=== PATIENT | male | born 1985 | race Caucasian/White ===

== ENCOUNTER 2021-01-30 14:45 | Outpatient (RCR) | payer BC, SELFPAY ==
--- NOTE | 2021-01-31 09:54 | STOPEVAL ---
SPEECH THERAPY INITIAL EVALUATION: Thank you for referring Willi Velez to [facility].? The patient is scheduled to be seen for therapy? 1x/week for 4 weeks. Please review, sign, date and return this plan of care GAVIOTA. I agree with and certify that the following plan of care is medically necessary. Referring Physician Date Attending Provider: Gurwinder Kilpatrick MD *ST Outpatient Evaluation Therapy Assessment Status Assessment Status Assessment Status Evaluation Outpatient Past Medical History Past Medical History Source of Past Medical History Patient Evaluation Information Problem Diagnosis Hoarseness/Voice Change Onset 1 year ago Cause unknown Diagnostic Tests Other Tests For This Problem seen by ENT Previous Treatments Previous Treatments For This Problem No Prior Level of Function Activity Level (Last 3 Months) Occupation works at [employer]; [employer] Medications Home Meds (Include: OTC, RX, Vitamins, was taking omeprazole per [facility], Dose, Route,and Frequency) first ENT recommendation which Query Text:Home Med Entries Will No did not improve vocal changes Longer Recall From Past Visits. Home ; second opinion ENT Meds Must Be Re-entered With Each Visit. instructed him to stop the omeprazole and prescribed a nasal rinse and flonase. Pt reported that it has only been 2 days but he feels like it is helping Home Setting Home Type House Living Situation With Minor Child,With Spouse Support Available Local Family Support Prior Swallow Level Prior Intake Method Oral Prior Diet Regular (Level 7 Diet) Prior Liquid Consistency Thin (Level 0 Diet) Prior Cognition/Communication Prior Communication Level No Impairment Prior Cognitive Function Able to Function Independently Prior Ability to Handle Finances Independent Pain Assessment Timing of Pain Assessment Timing of Pain Assessment Assessment Self Report Self Report Pain Level 0 Pain Score Pain Score 0: Self Report Voice Evaluation Voice History Voice History Pt reports his difficulty started approximately a year ago with an excessive cough that would not go away for nearly 2 months . He states that since that time he has chronic & constant throat clearing. Pt also c/o post nasal drip and constant swallowing of secretions. He also stated that his voice now
--- NOTE | 2021-02-06 15:50 | PCSTNOTE ---
SPEECH THERAPY DISCHARGE: Attending Provider: Gurwinder Kilpatrick MD Patient:Willi Velez Date of :1985 Patient was seen for the voice evaluation only; pt has since called and canceled further appointments stating that he feels he no longer requires ST. He will be discharged at this time. Patient?s initial visit was on 01/30/2021 15:00 and he had a total of 1 visits. Thank you for referring this patient to [facility]. Please review, sign, date and return this discharge summary GAVIOTA. I have been updated about the patient's current status and I agree with discharge from the above service at this time. Referring Physician Date
== END 2021-02-07 08:35 | disposition home or self-care (01) ==
LOC: ANHST 14:45
PROVIDERS: Visit Provider Otolaryngology
DX: J38.2 Nodules of vocal cords (principal); R49.0 Dysphonia
CPT/HCPCS: 92524

== ENCOUNTER 2021-09-25 12:22 | Outpatient (CLI) | payer BC, SELFPAY ==
--- NOTE | ~2021-09-25 | XR_ITS ---
EXAMINATION: XR chest 2V DATE: 09/25/2021 12:36 INDICATION: COVID-19 pneumonia. Dyspnea. TECHNIQUE: Frontal and lateral views of the chest were obtained. COMPARISON: None. FINDINGS: There are patchy airspace opacities in all lung zones bilaterally with a peripheral predomi nance. No pleural effusion or pneumothorax. The heart size is normal. IMPRESSION: 1. Diffuse lung disease, consistent with COVID-19 pneumonia. Reviewed, dictated and finalized at location A.
== END 2021-09-25 12:23 | disposition home or self-care (01) ==
LOC: ANHIMG 12:25
PROVIDERS: PCP Family Medicine; Visit Provider Nurse Practitioner Family
DX: U07.1 COVID-19 (principal); R91.8 Other nonspecific abnormal finding of lung field
CPT/HCPCS: 71046

== ENCOUNTER 2021-11-11 14:35 | Outpatient (CLI) | payer BC, SELFPAY ==
--- NOTE | ~2021-11-11 | US_ITS ---
EXAMINATION: US scrotum doppler DATE: 11/11/2021 15:09 INDICATION: Epididymitis presenting with right testicular pain TECHNIQUE: Testicular sonogram utilizing grayscale and Doppler COMPARISON: None. FINDINGS: The right testis measures 4.4 x 2.1 x 3.0 cm. The left testis measures 4.4 x 2.0 x 2.5 cm. Symmetric normal grayscale appearance to both testes. There is normal vascular flow to both testes. The right e pididymis is normal with normal vascular flow. The left epididymis is normal with normal vascular niles w. There is no varicocele or hydrocele. IMPRESSION: 1. Normal scrotal ultrasound. Reviewed, dictated and finalized at location A. NESS MANAGEMENT ANALYST
== END 2021-11-11 14:36 | disposition home or self-care (01) ==
PROVIDERS: PCP Family Medicine; Visit Provider Family Medicine
DX: N45.1 Epididymitis (principal)
CPT/HCPCS: 76870; 93976

== ENCOUNTER 2023-07-29 09:43 | Outpatient (CLI) | payer BC, SELFPAY ==
[2023-07-29 11:00] LABS: Influenza A QL RT-PCR Negative (Negative); Influenza B QL RT-PCR Negative (Negative); RSV RNA, RT-PCR Negative (Negative); SARS-CoV-2 RNA PCR Negative (Negative)
== END 2023-07-29 09:44 | disposition home or self-care (01) ==
PROVIDERS: PCP Family Medicine; Visit Provider Nurse Practitioner Family
DX: Z20.822 Contact with and (suspected) exposure to COVID-19 (principal)
CPT/HCPCS: 87637

== ENCOUNTER → 2023-07-29 10:00 | Outpatient (CLI) | payer BC, SELFPAY ==
--- NOTE | ~2023-07-29 | XR_ITS ---
Clinical Indication: Wheezing PA and lateral views of the chest: Comparison: 09/25/2021 Findings: The lungs are clear, without evidence of focal consolidation or pleural effusion. Cardiome diastinal silhouette is within normal limits. Bones and soft tissues are unremarkable. Impression: Normal chest. Reviewed, dictated and finalized at location . Impression: Normal chest.
== END ==
PROVIDERS: PCP Family Medicine; Visit Provider Nurse Practitioner Family
DX: R06.2 Wheezing (principal)
CPT/HCPCS: 71046

== ENCOUNTER 2024-02-18 12:28 | Outpatient (CLI) | payer BC, SELFPAY ==
--- NOTE | 2024-02-18 12:36 | ECHO_ITS ---
Patient Info Name: Willi Velez Age: 38 years : 1985 Gender: Male Ht: 70 in Wt: 180 lbs BSA: 2.02 m2 HR: 80 bpm BP: 139 / 69 mmHg Technical Quality: Fair Exam Date: 02/18/2024 1:24 PM Exam Location: Echo Lab Patient Status: Outpatient Admit Date: 02/18/2024 Staff Ordering Physician: Sonya Lazaro Shipbuilding Draftsperson: Radha Gamez RDCS Attending Provider: Sonya Lazaro Referring Physician: Tejas LONGORIA; Exam Type: CA echo doppler color flow Study Info Indications R07.89 - Other chest pain Complete two-dimensional, color flow and Doppler transthoracic echocardiogram is performed. Summary 1. Complete two-dimensional, color flow and Doppler transthoracic echocardiogram is performed. 2. Left ventricular chamber dimension is normal. 3. Left ventricular systolic function is normal, estimated at 60-65%. 4. The left ventricular diastolic function is normal. 5. E/e' 6 is not elevated. 6. Global longitudinal strain is normal at -19.2%. 7. There is trace mitral valve regurgitation. 8. There is trace tricuspid valve regurgitation. 9. No pulmonary hypertension, estimated pulmonary arterial systolic pressure is 32 mmHg. 10. There is trace pulmonic regurgitation. Left Ventricle E/e' 6 is not elevated. Global longitudinal strain is normal at -19.2%. Left ventricular chamber dimension is normal. Left ventricular systolic function is normal, estimated at 60-65%. The left ventricular diastolic function is normal. Right Ventricle Right ventricular chamber dimension is normal. Right ventricular systolic function is normal. Left Atria Left atrial chamber dimension is normal. Right Atria Right atrial chamber dimension is normal. Aortic Valve The aortic valve is trileaflet. There is no aortic valve stenosis. There is no aortic valve regurgitation. Pulmonic Valve There is trace pulmonic regurgitation. Mitral Valve There is no mitral valve stenosis. There is trace mitral valve regurgitation. Tricuspid Valve There is trace tricuspid valve regurgitation. No pulmonary hypertension, estimated pulmonary arterial systolic pressure is 32 mmHg. Pericardium/Pleural There is no pericardial effusion. Inferior Vena Cava Normal inferior vena cava with >50% collapse upon inspiration consistent with normal right atrial pressure, 5 mmHg. Aorta The aortic root size at the sinus of Valsalva is normal. Left Ventricular Outflow Tract Name Value Normal LVOT 2D LVOT Diameter 2.0 cm LVOT Doppler LVOT Peak Gradient 5 mmHg LVOT Mean Gradient 3 mmHg LVOT VTI 22 cm LVOT VTI/AV VTI Ratio 0.8 LVOT Stroke Volume 68 ml LVOT CO 15.2 l/min LVOT CI 7.5 l/min/m2 Pulmonic Valve Name Value Normal PV Doppler PV Peak Gradient
--- NOTE | 2024-02-18 16:18 | WPDPFTINT ---
PFT Procedure Performed PFT Procedure Performed Plethysmography (Lung Vol) Diffusing Cap (DLCO) Flow Vol Loop Spirometry w/o Bronchodil PFT Interpretation This is a pulmonary function test with spirometry, plethysmography and diffusing capacity. The test was performed and results interpreted in accordance with the 2019 and 2005 ATS/ERS Task Force guidelines respectively using the Global Lung Function Initiative-2012 reference equations. Patient demonstrated good effort and cooperation. Reproducibility criteria were met. The quality of the spirometry maneuver was Grade A. Findings: Spirometry: The contour the inspiratory and expiratory flow tracing are normal. The FVC is 5.55 L, 104% predicted. The FEV1 is 4.53 L, 104% predicted. The FEV1: FVC ratio is 82%. Plethysmography: The total lung capacity is 7.63 L, 110% predicted. The functional residual capacity is 3.46 L, 101% predicted. The residual volume is 2.08 L, 119% predicted. Diffusing capacity: The diffusing capacity unadjusted for hemoglobin and carboxyhemoglobin is 26.3, 78% predicted. The diffusing capacity adjusted for alveolar volume is 4.39, 88% predicted. Impression: The spirometry is normal without evidence of an obstructive abnormality. The lung volumes are normal. The diffusing capacity is normal. There are no prior studies for comparison
== END 2024-02-18 12:29 | disposition home or self-care (01) ==
LOC: ANHPFT 12:31
PROVIDERS: PCP Family Medicine; Visit Provider Nurse Practitioner Family
DX: R07.89 Other chest pain (principal); R05.3 Chronic cough; U09.9 Post COVID-19 condition, unspecified; R93.1 Abnormal findings on diagnostic imaging of heart and coronary circulation; I34.0 Nonrheumatic mitral (valve) insufficiency; I07.1 Rheumatic tricuspid insufficiency; I37.1 Nonrheumatic pulmonary valve insufficiency
CPT/HCPCS: 93306; 94375; 94726; 94729